=== PATIENT | male | born 1985 | race Caucasian/White ===

== ENCOUNTER 2016-07-18 20:31 | Emergency (ER) | payer SELFPAY | END 2016-07-18 20:35 | disposition left against medical advice (07) | LOC: ER 20:31 | DX: Z53.21 Procedure and treatment not carried out due to patient leaving prior to being seen by health care provider (principal) ==

== ENCOUNTER 2017-06-07 13:39 | Emergency (ER) | payer SELFPAY ==
--- NOTE | 2017-06-07 13:56 | ER Document Report ---
ED Medical Screen (RME) - General Chief Complaint: Testicular Pain Stated Complaint: PELVIC PAIN Time Seen by Provider: 06/07/17 13:55 Notes: pt was having bm and developed severe pelvic/ right teste and rectal pain. the pain continues TRAVEL OUTSIDE OF THE [place] IN LAST 30 DAYS: No - Related Data Allergies/Adverse Reactions: No Known Allergies Allergy (Verified 12/11/13 13:31) Past Medical History - Social History Chew tobacco use (# tins/day): No Frequency of alcohol use: None Neurological Medical History: Reports: Hx Seizures Renal/ Medical History: Denies: Hx Peritoneal Dialysis Traumatic Medical History: Reports: Hx Fractures - right ankle - Immunizations Hx Diphtheria, Pertussis, Tetanus Vaccination: Yes Physical Exam - Vital signs Vitals: Temp Pulse Resp BP Pulse Ox 98.2 F 52 L 16 120/68 99 06/07/17 13:46 06/07/17 13:46 06/07/17 13:46 06/07/17 13:46 06/07/17 13:46 Course - Vital Signs Vital signs: Temp Pulse Resp BP Pulse Ox 98.2 F 52 L 16 120/68 99 06/07/17 13:46 06/07/17 13:46 06/07/17 13:46 06/07/17 13:46 06/07/17 13:46
[2017-06-07 14:21] LABS: APPEARANCE,URINE CLEAR; BILIRUBIN,URINE NEGATIVE (NEGATIVE); COLOR,URINE YELLOW; GLUCOSE, URINE NEGATIVE (NEGATIVE); KETONES,URINE NEGATIVE (NEGATIVE); LEUKOCYTE ESTERASE,URINE NEGATIVE (NEGATIVE); NITRITE,URINE NEGATIVE (NEGATIVE); PROTEIN,URINE NEGATIVE (NEGATIVE); URINE SPECIFIC GRAVITY 1.018; UROBILINOGEN,URINE NEGATIVE mg/dL (<2.0)
[2017-06-07] MEDS ORDERED: KETOROLAC TROMETHAMINE INJ/PF 30 MG/1 ML SDV IV ONE (14:59)
[2017-06-07] MEDS ORDERED: ONDANSETRON HCL INJ/PF 4 MG/2 ML SDV IV ONE (14:59)
--- NOTE | 2017-06-07 15:00 | ER Document Report ---
HPI - HPI Patient complains to provider of: Testicular pain Onset: Just prior to arrival Onset/Duration: Sudden Quality of pain: Sharp Pain Level: 4 Context: Patient states that he was attempting to have a bowel movement and had a sudden onset of right testicular pain that radiated into right side of abdomen. Patient states that he had nausea and felt faint. Patient denies any fever. Patient denies any urinary symptoms. Associated Symptoms: Other - Right testicular pain, right side abdomen pain. denies: Fever Exacerbated by: Denies Relieved by: Denies Similar symptoms previously: No Recently seen / treated by doctor: No - ROS ROS below otherwise negative: Yes Systems Reviewed and Negative: Yes All other systems reviewed and negative - CONSTITUTIONAL Constitutional: DENIES: Fever, Chills - NEURO Neurology: DENIES: Weakness - GASTROINTESTINAL Gastrointestinal: REPORTS: Abdominal Pain, Nausea. DENIES: Patient vomiting - URINARY Notes: Right testicular pain - MUSCULOSKELETAL Musculoskeletal: DENIES: Back Pain - DERM Skin Color: Normal Skin Problems: None Past Medical History - General Information source: Patient - Social History Smoking Status: Never Smoker Chew tobacco use (# tins/day): No Frequency of alcohol use: None Drug Abuse: None Occupation: [employer] Lives with: Family Family History: Reviewed & Not Pertinent Patient has suicidal ideation: No Patient has homicidal ideation: No Neurological Medical History: Reports: Hx Seizures Renal/ Medical History: Reports: Hx Kidney Stones. Denies: Hx Peritoneal Dialysis Traumatic Medical History: Reports: Hx Fractures - right ankle Surgical Hx: Negative - Immunizations Hx Diphtheria, Pertussis, Tetanus Vaccination: Yes Vertical Provider Document - CONSTITUTIONAL Agree With Documented VS: Yes Exam Limitations: No Limitations General Appearance: WD/WN, No Apparent Distress - INFECTION CONTROL TRAVEL OUTSIDE OF THE [place] IN LAST 30 DAYS: No - HEENT HEENT: Atraumatic, Normocephalic - NECK Neck: Normal Inspection - RESPIRATORY Respiratory: Breath Sounds Normal, No Respiratory Distress O2 Sat by Pulse Oximetry: 99 - CARDIOVASCULAR Cardiovascular: Regular Rate, Regular Rhythm, No Murmur - GI/ABDOMEN Gastrointestinal: Abdomen Soft, Abdomen Tender - Right-sided abdomen, right lower quadrant, right inguinal area, No Organomegaly, Normal Bowel Sounds - REPRODUCTIVE Male Genitalia: Abnormal Inspection Notes: Patient with right testicular tenderness and right inguinal tenderness, decreased cremasteric reflex bilaterally, no drainage or discharge from the penis. - BACK Back: CVA Tenderness-Right - MUSCULOSKELETAL/EXTREMETIES Musculoskeletal/Extremeties: TIFFANIE [place] - NEURO Level of Consciousness: Awake, Alert, Appropriate Motor/Sensory: No Motor Deficit - DERM Integumentary: Warm, Dry, No Rash Course - Re-evaluation Re-evalutation: 06/07/17 17:54 Patient's abdomen soft, no guarding. Patient with mild tenderness to right side of abdomen. Discussed results of ultrasound as well as CT scan with patient. Patient advised of intrarenal stone. Patient encouraged to follow-up with urologist for further evaluation of renal stone as well as hematuria. No concern for pyelonephritis or appendicitis at this time. Patient nontoxic in appearance. Discussed worsening signs or symptoms that patient should return immediately for. Patient verbalized understanding and agrees with plan of care. - Vital Signs Vital signs: Temp Pulse Resp BP Pulse Ox 98.2 F 52 L 16 120/68 99 06/07/17 13:46 06/07/17 13:46 06/07/17 13:46 06/07/17 13:46 06/07/17 13:46 - Laboratory Result Diagrams: 06/07/17 16:10 06/07/17 16:10 Laboratory results interpreted by me: 06/07/17 14:02 Urine Blood LARGE H 06/07/17 17:53 Labs- Entire Visit 06/07/17 06/07/17 06/07/17 14:02 16:10 16:10 WBC 9.2 RBC 5.07 Hgb 15.2 Hct 44.6 MCV 88 MCH 29.9 MCHC 34.0 RDW 13.5 Plt Count 255 Seg Neutrophils % 68.8 Lymphocytes % 20.4 Monocytes % 6.0 Eosinophils % 4.0 Basophils % 0.8 Absolute Neutrophils 6.4 Absolute Lymphocytes 1.9 Absolute Monocytes 0.6 Absolute Eosinophils 0.4 Absolute Basophils 0.1 Sodium 142.2 Potassium 4.8 Chloride 105 Carbon Dioxide 29 Anion Gap 8 BUN 16 Creatinine 0.90 Est GFR ( Amer) > 60 Est GFR (Non-Af Amer) > 60 Glucose 92 Calcium 9.6 Total Bilirubin 0.6 Direct Bilirubin 0.5 H Neonat Total Bilirubin Not Reportable Neonat Direct Bilirubin Not Reportable Neonat Indirect Bili Not Reportable AST 45 ALT 47 Alkaline Phosphatase 59 Total Protein 7.5 Albumin 4.5 Urine Color YELLOW Urine Appearance CLEAR Urine pH 5.0 Ur Specific Leblanc 1.018 Urine Protein NEGATIVE Urine Glucose (UA) NEGATIVE Urine Ketones NEGATIVE Urine Blood LARGE H Urine Nitrite NEGATIVE Urine Bilirubin NEGATIVE Urine Urobilinogen NEGATIVE Ur Leukocyte Esterase NEGATIVE Urine WBC (Auto) 1 Urine RBC (Auto) 11 Squamous Epi Cells Auto <1 Urine Mucus (Auto) OCC Urine Ascorbic Acid NEGATIVE - Diagnostic Test Radiology reviewed: Reports reviewed Discharge - Discharge Clinical Impression: Scrotal pain, Renal stone Abdominal pain Qualifiers: Abdominal location: unspecified location Qualified Code(s): R10.9 - Unspecified abdominal pain Hematuria Qualifiers: Hematuria type: unspecified type Qualified Code(s): R31.9 - Hematuria, unspecified Condition: Stable Disposition: HOME, SELF-CARE Instructions: Abdominal Pain ([facility]), Hematuria ([facility]) Additional Instructions: Return immediately for any new or worsening symptoms Followup with your primary care provider, call tomorrow to make a followup appointment Follow up with a urologist for further evaluation of renal stones as well as blood in your urine Prescriptions: Oxycodone HCl/Acetaminophen [Percocet 5-325 mg Tablet] 1 tab PO ASDIR PRN #10 tablet PRN Reason: Forms: Return to Work Referrals: [facility] [Provider Group] - Follow up as needed [facility] [Provider Group] - Follow up as needed [facility] [Provider Group] - Follow up as needed
[2017-06-07 16:25] LABS: ABSOLUTE BASOPHILS # (AUTO) 0.1 10^3/uL (0.0-0.2); ABSOLUTE EOSINOPHILS # (AUTO) 0.4 10^3/uL (0.0-0.6); ABSOLUTE LYMPHOCYTES (AUTO) 1.9 10^3/uL (0.5-4.7); ABSOLUTE MONOCYTES (AUTO) 0.6 10^3/uL (0.1-1.4); ABSOLUTE NEUT (AUTO) 6.4 10^3/uL (1.7-8.2); BASOPHILS % (AUTO) 0.8 % (0-2); HEMATOCRIT 44.6 % (37.9-51.0); HEMOGLOBIN 15.2 g/dL (13.5-17.0); LYMPHOCYTES % (AUTO) 20.4 % (13-45); MEAN CORPUSCULAR HEMOGLOBIN 29.9 pg (27.0-33.4); MEAN CORPUSCULAR VOLUME 88 fl (80-97); PLATELET COUNT 255 10^3/uL (150-450); RED BLOOD COUNT 5.07 10^6/uL (4.35-5.55); RED CELL DISTRIBUTION WIDTH 13.5 % (11.5-14.0); SEGMENTED NEUTROPHILS % (AUTO) 68.8 % (42-78); TOTAL CELLS COUNTED % (AUTO) 100 %; WHITE BLOOD COUNT 9.2 10^3/uL (4.0-10.5)
[2017-06-07 16:43] LABS: ALANINE AMINOTRANSFERASE 47 U/L (21-72); ALBUMIN 4.5 g/dL (3.5-5.0); ALKALINE PHOSPHATASE 59 U/L (38-126); ANION GAP 8 (5-19); ASPARTATE AMINO TRANSFERASE 45 U/L (17-59); BILIRUBIN,DIRECT 0.5 mg/dL (0.0-0.4); BILIRUBIN,TOTAL 0.6 mg/dL (0.2-1.3); BLOOD UREA NITROGEN 16 mg/dL (7-20); CALCIUM 9.6 mg/dL (8.4-10.2); CARBON DIOXIDE 29 mmol/L (22-30); CHLORIDE 105 mmol/L (98-107); GLUCOSE 92 mg/dL (75-110); POTASSIUM 4.8 mmol/L (3.6-5.0); SODIUM 142.2 mmol/L (137-145); TOTAL PROTEIN 7.5 g/dL (6.3-8.2)
--- NOTE | 2017-06-07 17:17 | RADIOLOGY REPORT (SQ) ---
EXAM DESCRIPTION: U/S SCROTUM W/DOPPLER COMPLETED DATE/TIME: 06/07/2017 4:59 pm REASON FOR STUDY: testicular pain COMPARISON: None. TECHNIQUE: Static and realtime vieyra scale imaging of the scrotum and testes. Selected color Doppler and spectral images recorded to document blood flow. LIMITATIONS: None. FINDINGS: RIGHT: TESTICLE: Normal size. Normal echotexture. Normal blood flow. No mass. EPIDIDYMIS: Normal. HYDROCELE OR VARICOCELE: No. HERNIA OR EXTRA-TESTICULAR MASS: No. OTHER: No other significant finding. LEFT: TESTICLE: Normal size. Normal echotexture. Normal blood flow. No mass. EPIDIDYMIS: Normal. HYDROCELE OR VARICOCELE: No. HERNIA OR EXTRA-TESTICULAR MASS: No. OTHER: No other significant finding. IMPRESSION: NORMAL SCROTAL ULTRASOUND. NO EVIDENCE OF TESTICULAR MASS OR TORSION. TECHNICAL DOCUMENTATION: JOB ID: [id number] [employer]- All Rights Reserved Reading location - IP/workstation name: [email or web address]
--- NOTE | 2017-06-07 17:48 | RADIOLOGY REPORT (SQ) ---
EXAM DESCRIPTION: CT ABD/PELVIS WITH IV ONLY COMPLETED DATE/TIME: 06/07/2017 5:30 pm REASON FOR STUDY: RLQ pain COMPARISON: None. TECHNIQUE: CT scan of the abdomen and pelvis performed using helical scanning technique with dynamic intravenous contrast injection. No oral contrast. Images reviewed with lung, soft tissue, and bone windows. Reconstructed coronal and sagittal MPR images reviewed. Delayed images for evaluation of the urinary system also acquired. All images stored on PACS. All CT scanners at this facility use dose modulation, iterative reconstruction, and/or weight based d osing when appropriate to reduce radiation dose to as low as reasonably achievable (ALARA). [facility]: Dose Right [facility]: CareDose [facility]: Dose Right [facility]: Teradose 4D [facility]: [employer] CONTRAST TYPE AND DOSE: contrast/concentration: Isovue 370.00 mg/ml; Total Contrast Delivered: 100.0 ml; Total Saline Delivered: 35.0 ml RENAL FUNCTION: None required. The patient is less than 50 years old. RADIATION DOSE: CT Rad equipment meets quality standard of care and radiation dose reduction techniq ues were employed. CTDIvol: 20.1 - 20.7 mGy. DLP: 2348 mGy-cm.. LIMITATIONS: None. FINDINGS: LOWER CHEST: No significant findings. No nodules or infiltrates. LIVER: Normal size. No masses. No dilated ducts. SPLEEN: Normal size. No focal lesions. PANCREAS: No masses. No significant calcifications. No adjacent inflammation or peripancreatic fluid collections. Pancreatic duct not dilated. GALLBLADDER: No identified stones by CT criteria. No inflammatory changes to suggest cholecystitis. ADRENAL GLANDS: No significant masses or asymmetry. RIGHT KIDNEY AND URETER: No solid masses. There is a 3 mm lower calyceal calculus on the right. N o hydronephrosis or hydroureter. LEFT KIDNEY AND URETER: No solid masses. No significant calcifications. No hydronephrosis or hydr oureter. AORTA AND VESSELS: No aneurysm. No dissection. Renal arteries, SMA, celiac without stenosis. RETROPERITONEUM: No retroperitoneal adenopathy, hemorrhage or masses. BOWEL AND PERITONEAL CAVITY: No masses or inflammatory changes. No free fluid or peritoneal masses. APPENDIX: Normal. PELVIS: No mass. No free fluid. Normal bladder. ABDOMINAL WALL: No masses. No hernias. BONES: No significant or acute findings. OTHER: No other significant finding. IMPRESSION: The study is normal except for the presence of a 3 mm lower calyceal calculus in the rig ht kidney. TECHNICAL DOCUMENTATION: JOB ID: [id number] Quality ID # [id number]: Final reports with documentation of one or more dose reduction techniques (e.g., Au tomated exposure control, adjustment of the mA and/or kV according to patient size, use of iterative reconstruction technique) 2010 [employer]- All Rights Reserved Reading location - IP/workstation name: [email or web address]
[2017-06-07 18:19] VITALS: BP 104/60
== END 2017-06-07 18:21 | disposition home or self-care (01) ==
LOC: ER 13:39
DX: N50.82 Scrotal pain (principal); N20.0 Calculus of kidney; N50.811 Right testicular pain; R31.9 Hematuria, unspecified; R10.9 Unspecified abdominal pain; R11.0 Nausea; Z87.442 Personal history of urinary calculi
CPT/HCPCS: 99284; 96374; 96375; 36415; 87086; 85025; 80053; 81001; 76870; 93976; 74177; J1885; J2405

== ENCOUNTER 2017-12-29 08:21 | Emergency (ER) | payer SELFPAY ==
--- NOTE | 2017-12-29 09:56 | ER Document Report ---
ED General - General Chief Complaint: Leg Swelling Stated Complaint: LEG SWELLING/PAIN Time Seen by Provider: 12/29/17 09:16 TRAVEL OUTSIDE OF THE [place] IN LAST 30 DAYS: No - HPI Notes: Patient is a 32-year-old male that presents to the emergency department for chief complaint of right leg swelling and pain. Patient states he has had cramping pain in the back of his right leg for the last week. Today he woke up and noticed it was significantly more swollen than the left. He also states he has a substernal chest pain that started this morning. The pain is intermittent and lasts for a few minutes at a time. There is no relieving factors. He states that it does occur while at rest or when he is up moving around. He describes it as a sharp and achy pain. He states that it is worse when he takes a deep breath in. He recently evacuated from the [place] to [facility] which was about a 6-hour car ride both ways. He denies any history of cancer, personal or family history of DVT, and recent surgeries. Currently he is not having any chest pain. Past Medical History: Negative Past Surgical History: Negative Social History: Occasional alcohol. denies drugs and tobacco. Family History: Reviewed and noncontributory for presenting illness Allergies: Reviewed, see documented allergy list. REVIEW OF SYSTEMS: CONSTITUTIONAL : No fever No chills No diaphoresis No recent illness EENT: No vision changes No congestion No sore throat CARDIOVASCULAR: chest pain No palpitations RESPIRATORY: No shortness of breath No cough No difficulty breathing GASTROINTESTINAL: No abdominal pain No nausea No vomiting No diarrhea GENITOURINARY: No dysuria No hematuria No difficulty urinating MUSCULOSKELETAL: No back pain Right leg pain and swelling No arm pain SKIN: No rashes No lesions LYMPHATIC: No swollen, enlarged glands. NEUROLOGICAL: No lightheadedness No headache No weakness No paresthesias PSYCHIATRIC: No anxiety No depression PHYSICAL EXAMINATION: Vital signs reviewed, nursing noted reviewed. GENERAL: Well-appearing, well-nourished and in no acute distress. HEAD: Atraumatic, normocephalic. EYES: Eyes appear normal, extraocular movements intact, sclera anicteric, conjunctiva are normal. ENT: nares patent, oropharynx clear without exudates. Moist mucous membranes. NECK: Normal range of motion, supple without lymphadenopathy LUNGS: Breath sounds clear to auscultation bilaterally and equal. No wheezes rales or rhonchi. HEART: Regular rate and rhythm without murmurs ABDOMEN: Soft, nontender, normoactive bowel sounds. No rebound, guarding, or rigidity. No masses appreciated. EXTREMITIES:good range of motion, +2 pitting edema right lower extremity with engorgement of superficial veins, right calf tenderness to palpation. Compartments soft. Normal left leg exam. +2/4 DP pulse bilaterally NEUROLOGICAL: No focal neurological deficits. Moves all extremities spontaneously Motor and sensory grossly intact on exam. PSYCH: Normal mood, normal affect. SKIN: Warm, Dry, normal turgor, no rashes or lesions noted on exposed skin - Related Data Allergies/Adverse Reactions: No Known Allergies Allergy (Verified 12/29/17 08:31) Past Medical History - Social History Smoking Status: Never Smoker Family History: Reviewed & Not Pertinent Neurological Medical History: Reports: Hx Seizures Renal/ Medical History: Reports: Hx Kidney Stones. Denies: Hx Peritoneal Dialysis Traumatic Medical History: Reports: Hx Fractures - right ankle - Immunizations Hx Diphtheria, Pertussis, Tetanus Vaccination: Yes Review of Systems - Review of Systems Notes: Dictated Physical Exam - Vital signs Vitals: Temp Pulse Resp BP Pulse Ox 97.6 F 40 L 14 111/70 99 12/29/17 08:36 12/29/17 08:36 12/29/17 08:36 12/29/17 08:36 12/29/17 08:36 - Notes Notes: Dictated Course - Re-evaluation Re-evalutation: 12/29/17 09:56 Vitals reviewed. Patient afebrile nontoxic. 12/29/17 11:10 Laboratory 12/29/17 12/29/17 12/29/17 09:55 09:55 09:55 WBC 7.7 RBC 4.64 Hgb 14.2 Hct 41.4 MCV 89 MCH 30.6 MCHC 34.3 RDW 13.2 Plt Count 210 Seg Neutrophils % 60.1 Lymphocytes % 25.5 Monocytes % 8.2 Eosinophils % 5.7 Basophils % 0.5 Absolute Neutrophils 4.6 Absolute Lymphocytes 2.0 Absolute Monocytes 0.6 Absolute Eosinophils 0.4 Absolute Basophils 0.0 D-Dimer < 0.27 Sodium 141.3 Potassium 4.2 Chloride 107 Carbon Dioxide 30 Anion Gap 4 L BUN 10 Creatinine 0.86 Est GFR ( Amer) > 60 Est GFR (Non-Af Amer) > 60 Glucose 88 Calcium 8.9 Chest/Abdomen CTA 12/29/17 09:39 IMPRESSION: 1. NORMAL CTA OF THE CHEST. NO PULMONARY EMBOLI. 2. A FEW TINY PUNCTATE NONOBSTRUCTING CALCULI IN THE LEFT KIDNEY. 12/29/17 11:11 Patient reevaluated. He is bradycardic but asymptomatic. There is no heart block. Blood pressure has been stable. He has no lower extremity DVT on ultrasound. CT scan of the chest shows no pulmonary embolism. Lab work is unremarkable. Patient will be referred to family medicine for follow-up of his peripheral edema and bradycardia. He was advised to return to the emergency room for new or worsening symptoms. Patient stable and in agreement with the plan. - Vital Signs Vital signs: Temp Pulse Resp BP Pulse Ox 97.6 F 40 L 14 111/70 99 12/29/17 08:36 12/29/17 08:36 12/29/17 08:36 12/29/17 08:36 12/29/17 08:36 - Laboratory Result Diagrams: 12/29/17 09:55 12/29/17 09:55 Laboratory results interpreted by me: 12/29/17 09:55 Anion Gap 4 L - EKG Interpretation by Me Additional EKG results interpreted by me: 12/29/17 10:08 0951: Sinus bradycardia, rate 37, no ectopy, normal axis, no ST elevation or heart block Discharge - Discharge Clinical Impression: Leg edema, right, Bradycardia Condition: Stable Disposition: HOME, SELF-CARE Instructions: Edema, Peripheral ([facility]), Family Physicians / Practices Additional Instructions: Please return to the emergency department if you have any worsening, or concern of your symptoms. Please return to the emergency department if you develop chest pain, difficulty breathing, severe abdominal pain, or ongoing vomiting. Please follow-up with your primary care physician in 2-3 days and any other recommended physicians. If prescribed, take all medications as directed. If you have any questions or concerns do not hesitate to return the emergency department for evaluation. []
[2017-12-29 10:13] LABS: ABSOLUTE EOSINOPHILS # (AUTO) 0.4 10^3/uL (0.0-0.6); ABSOLUTE MONOCYTES (AUTO) 0.6 10^3/uL (0.1-1.4); ABSOLUTE NEUT (AUTO) 4.6 10^3/uL (1.7-8.2); BASOPHILS % (AUTO) 0.5 % (0-2); EOSINOPHILS % (AUTO) 5.7 % (0-6); HEMATOCRIT 41.4 % (37.9-51.0); HEMOGLOBIN 14.2 g/dL (13.5-17.0); LYMPHOCYTES % (AUTO) 25.5 % (13-45); MEAN CORPUSCULAR HEMOGLOBIN 30.6 pg (27.0-33.4); MEAN CORPUSCULAR HGB CONC 34.3 g/dL (32.0-36.0); MEAN CORPUSCULAR VOLUME 89 fl (80-97); MONOCYTES % (AUTO) 8.2 % (3-13); PLATELET COUNT 210 10^3/uL (150-450); RED BLOOD COUNT 4.64 10^6/uL (4.35-5.55); RED CELL DISTRIBUTION WIDTH 13.2 % (11.5-14.0); SEGMENTED NEUTROPHILS % (AUTO) 60.1 % (42-78); TOTAL CELLS COUNTED % (AUTO) 100 %; WHITE BLOOD COUNT 7.7 10^3/uL (4.0-10.5)
[2017-12-29 10:37] LABS: BLOOD UREA NITROGEN 10 mg/dL (7-20); CALCIUM 8.9 mg/dL (8.4-10.2); CARBON DIOXIDE 30 mmol/L (22-30); CHLORIDE 107 mmol/L (98-107); GLUCOSE 88 mg/dL (75-110); POTASSIUM 4.2 mmol/L (3.6-5.0); SODIUM 141.3 mmol/L (137-145)
--- NOTE | 2017-12-29 10:44 | RADIOLOGY REPORT (SQ) ---
EXAM DESCRIPTION: CTA CHEST COMPLETED DATE/TIME: 12/29/2017 10:31 am REASON FOR STUDY: chest pain COMPARISON: None. TECHNIQUE: CT scan of the chest performed using helical scanning technique with dynamic intravenous contrast injection. Images reviewed with lung, soft tissue and bone windows. Reconstructed coronal and sagittal MPR images reviewed. Additional 3 dimensional post-processing performed to develop Maximal Intensity Projection images (N[place] P). All images stored on PACS. All CT scanners at this facility use dose modulation, iterative reconstruction, and/or weight based d osing when appropriate to reduce radiation dose to as low as reasonably achievable (ALARA). [facility]: Dose Right [facility]: CareDose [facility]: Dose Right [facility]: Teradose 4D [facility]: [employer] CONTRAST TYPE AND DOSE: contrast/concentration: Isovue 350.00 mg/ml; Total Contrast Delivered: 84.0 ml; Total Saline Delivered: 90.0 ml Contrast bolus optimized for the pulmonary arteries. Not diagnostic for the aorta. RENAL FUNCTION: None required. The patient is less than 50 years old. RADIATION DOSE: CT Rad equipment meets quality standard of care and radiation dose reduction techniq ues were employed. CTDIvol: 19.8 - 32.0 mGy. DLP: 1224 mGy-cm. . LIMITATIONS: None. FINDINGS: LUNGS AND PLEURA: No masses, infiltrates, or pneumothorax. No pleural effusions or pleura l calcifications. AORTA AND GREAT VESSELS: No aneurysm. Contrast bolus not optimized for the aorta. HEART: No pericardial effusion. No significant coronary artery calcifications. PULMONARY ARTERIES: No emboli visualized in the main pulmonary arteries or the segmental branches. HILAR AND MEDIASTINAL STRUCTURES: No identified masses or abnormal nodes. HARDWARE: None in the chest. UPPER ABDOMEN: A few tiny punctate calculi in the left kidney. Limited exam. THYROID AND OTHER SOFT TISSUES: No masses. No adenopathy. BONES: No acute or significant finding. 3D MIPS: Confirm above findings. OTHER: No other significant finding. IMPRESSION: 1. NORMAL CTA OF THE CHEST. NO PULMONARY EMBOLI. 2. A FEW TINY PUNCTATE NONOBSTRUCTING CALCULI IN THE LEFT KIDNEY. COMMENT: Quality ID # 436: Final reports with documentation of one or more dose reduction techniques (e.g., Automated exposure control, adjustment of the mA and/or kV according to patient size, use of iterative reconstruction technique) TECHNICAL DOCUMENTATION: JOB ID: [id number] [employer]- All Rights Reserved Reading location - IP/workstation name: [email or web address]
[2017-12-29 10:52] LABS: ANION GAP 4 (5-19)
[2017-12-29 12:00] VITALS: BP 114/79
--- NOTE | 2017-12-29 12:29 | XCELERA REPORT ---
[address] [place] [facility] [address] Lower Extremity Venous Evaluation Procedure: A unilateral duplex scan of the right lower extremity veins was performed. The evaluation included responses to compression and other maneuvers. The contralateral femoral vein was also evaluated.Reason Right Sided Venous Evaluation Normal vessel filling wall to wall, compression and augmentation as well as Colour flow down to the infrageniculate veins. Interpretation Summary There is no evidence of deep vein thrombosis in the right lower extremity. Name: PILY VALLADARES Age: 32 yrs Gender: Male : 1985 Patient Status: Emergency Patient Location: ER Study Date: 12/29/2017 10:48 AM For Study: pain right leg Ordering Physician: OCTAVIO PATTERSON Performed By: Dhaval Corrigan : OCTAVIO PATTERSON > Jeff Lind
--- NOTE | 2017-12-29 21:05 | EKG REPORT ---
SEVERITY:- OTHERWISE NORMAL ECG - SINUS BRADYCARDIA : Confirmed by: Belkys Richards MD 29-Dec-2017 21:04:29
== END 2017-12-29 12:15 | disposition home or self-care (01) ==
LOC: ER 08:21
DX: R00.1 Bradycardia, unspecified (principal); R60.9 Edema, unspecified; M79.604 Pain in right leg; Z87.442 Personal history of urinary calculi
CPT/HCPCS: 36415; 71275; 80048; 85025; 85379; 93005; 93010; 93971; 99284

== ENCOUNTER 2019-08-20 21:28 | Emergency (ER) | payer SELFPAY ==
[2019-08-20] MEDS ORDERED: ASPIRIN 81 MG TABLET, CHEWABLE PO ONE (21:45)
--- NOTE | 2019-08-20 21:48 | ER Document Report ---
ED Medical Screen (RME) - General Chief Complaint: Arm Pain Stated Complaint: PAIN LEFT ARM Time Seen by Provider: 08/20/19 21:38 Mode of Arrival: Ambulatory Information source: Patient Notes: 34-year-old male presented to ED for complaint of left arm pain for the last 2 hours. He states it goes across the left shoulder down the left arm. He states he has not had any injuries he has not lifted anything he has no cardiac history. He states he has had no shortness of breath he just is pain going from across her shoulder down to his left fingers. Patient is alert oriented respirations regular and unlabored speaking in full sentences. He does not have any tenderness to the chest. I have greeted and performed a rapid initial assessment of this patient. A comprehensive ED assessment and evaluation of the patient, analysis of test results and completion of medical decision making process will be conducted by an additional ED providers. He has TRAVEL OUTSIDE OF THE [place] IN LAST 30 DAYS: No - Related Data Allergies/Adverse Reactions: No Known Allergies Allergy (Verified 12/29/17 08:31) Past Medical History Neurological Medical History: Reports: Hx Seizures Renal/ Medical History: Reports: Hx Kidney Stones. Denies: Hx Peritoneal Dial ysis Traumatic Medical History: Reports: Hx Fractures - right ankle - Immunizations Hx Diphtheria, Pertussis, Tetanus Vaccination: Yes
[2019-08-20 22:18] LABS: ABSOLUTE EOSINOPHILS # (AUTO) 0.2 10^3/uL (0.0-0.6); ABSOLUTE LYMPHOCYTES (AUTO) 2.2 10^3/uL (0.5-4.7); ABSOLUTE MONOCYTES (AUTO) 0.6 10^3/uL (0.1-1.4); ABSOLUTE NEUT (AUTO) 6.9 10^3/uL (1.7-8.2); BASOPHILS % (AUTO) 0.3 % (0-2); EOSINOPHILS % (AUTO) 2.3 % (0-6); HEMATOCRIT 45.6 % (37.9-51.0); HEMOGLOBIN 15.6 g/dL (13.5-17.0); LYMPHOCYTES % (AUTO) 22.1 % (13-45); MEAN CORPUSCULAR HEMOGLOBIN 30.9 pg (27.0-33.4); MEAN CORPUSCULAR HGB CONC 34.3 g/dL (32.0-36.0); MEAN CORPUSCULAR VOLUME 90 fl (80-97); MONOCYTES % (AUTO) 6.1 % (3-13); PLATELET COUNT 233 10^3/uL (150-450); RED BLOOD COUNT 5.07 10^6/uL (4.35-5.55); RED CELL DISTRIBUTION WIDTH 12.7 % (11.5-14.0); SEGMENTED NEUTROPHILS % (AUTO) 69.2 % (42-78); TOTAL CELLS COUNTED % (AUTO) 100 %
[2019-08-20 22:33] LABS: ALBUMIN 4.6 g/dL (3.5-5.0); ALKALINE PHOSPHATASE 66 U/L (38-126); ANION GAP 7 (5-19); ASPARTATE AMINO TRANSFERASE 37 U/L (17-59); BILIRUBIN,TOTAL 0.6 mg/dL (0.2-1.3); BLOOD UREA NITROGEN 15 mg/dL (7-20); CALCIUM 9.8 mg/dL (8.4-10.2); CARBON DIOXIDE 28 mmol/L (22-30); CHLORIDE 102 mmol/L (98-107); GLUCOSE 96 mg/dL (75-110); POTASSIUM 4.8 mmol/L (3.6-5.0); TOTAL PROTEIN 7.5 g/dL (6.3-8.2)
--- NOTE | 2019-08-20 22:42 | RADIOLOGY REPORT (SQ) ---
EXAM DESCRIPTION: PA and lateral x-rays of the chest CLINICAL HISTORY: 34 years Male, Left shoulder down the left arm pain no injury COMPARISON: None. FINDINGS: Lungs: Lungs are clear. No pneumonia or edema. No pneumothorax or pleural effusion. Mediastinum: Cardiac and mediastinal silhouette are normal. Bones: Osseous structures are normal. IMPRESSION: Unremarkable radiographs of the chest
--- NOTE | 2019-08-20 22:43 | RADIOLOGY REPORT (SQ) ---
EXAM DESCRIPTION: XR SHOULDER 2 OR MORE VIEWS COMPLETED DATE/TME: 08/20/2019 21:48 CLINICAL HISTORY: 34 years, Male, pain left shoulder to hand COMPARISON: None. NUMBER OF VIEWS: 3 TECHNIQUE: Frontal and transscapular Y projections were acquired LIMITATIONS: None. FINDINGS: Visualized osseous structures are normal in appearance. Joint spaces are well-maintained. No acute fracture or dislocation is evident. IMPRESSION: No acute osseous anomaly. copyright 2010 [employer]- All Rights Reserved
[2019-08-20] MEDS ORDERED: KETOROLAC TROMETHAMINE INJ/PF 30 MG/1 ML SDV IV ONE (23:24)
--- NOTE | 2019-08-20 23:25 | ER Document Report ---
ED General - General Chief Complaint: Arm Pain Stated Complaint: PAIN LEFT ARM Time Seen by Provider: 08/20/19 21:38 Mode of Arrival: Ambulatory Notes: Patient is a 34-year-old male who comes emergency department with chief complaint of left arm pain that has become noticeable for the past 2 hours although he states he did feel earlier when he was at work. He also is a sunburn on the left arm. He states that when he first started noticing the pain this evening he also looked at his arm and felt like it might be swollen, he states he was concerned it might have a blood clot. He states he also has some pain up in the front of his chest, he states that he can find a specific area that if he presses on it hurts, it also hurts when he attempts to raise his left arm over his head. He states occasionally he will feel the pain shoot down his arm into his fingers. He denies numbness, shortness of breath, nausea, vomiting, dizziness, impact injury. He denies smoking, recreational drugs, reports limited alcohol. He takes no daily medications. He denies any recent travel or surgery. He does not know his family history because he is adopted. TRAVEL OUTSIDE OF THE [place] IN LAST 30 DAYS: No - Related Data Allergies/Adverse Reactions: No Known Allergies Allergy (Verified 12/29/17 08:31) Past Medical History - General Information source: Patient - Social History Smoking Status: Never Smoker Frequency of alcohol use: None Drug Abuse: None Lives with: Family Family History: Reviewed & Not Pertinent Patient has homicidal ideation: No Neurological Medical History: Reports: Hx Seizures Renal/ Medical History: Reports: Hx Kidney Stones. Denies: Hx Peritoneal Dialysis Traumatic Medical History: Reports: Hx Fractures - right ankle - Immunizations Hx Diphtheria, Pertussis, Tetanus Vaccination: Yes Review of Systems - Review of Systems Constitutional: No symptoms reported EENT: No symptoms reported Cardiovascular: See HPI Respiratory: No symptoms reported Gastrointestinal: No symptoms reported Genitourinary: No symptoms reported Male Genitourinary: No symptoms reported Musculoskeletal: See HPI Skin: No symptoms reported Hematologic/Lymphatic: No symptoms reported Neurological/Psychological: No symptoms reported Physical Exam - Vital signs Vitals: Temp 98 F 08/20/19 21:28 - Notes Notes: GENERAL: Alert, interacts well. No acute distress. HEAD: Normocephalic, atraumatic. EYES: Pupils equal, round, and reactive to light. Extraocular movements intact. ENT: Oral mucosa moist, tongue midline. Oropharynx unremarkable. Airway patent. NECK: Full range of motion. Supple. Trachea midline. No lymphadenopathy. LUNGS: Clear to auscultation bilaterally, no wheezes, rales, or rhonchi. No respiratory distress. Very specific left-sided pectoral muscle tenderness which is very reproducible. This is also worsening with range of motion especially when patient tries to lift his left arm over his head. HEART: Regular rate and rhythm. No murmur ABDOMEN: Soft, non-tender. Non-distended. Bowel sounds present in all 4 quadrants. GENITOURINARY: Deferred EXTREMITIES: Moves all 4 extremities spontaneously. No edema, normal radial and dorsalis pedis pulses bilaterally. No cyanosis. BACK: no cervical, thoracic, lumbar midline tenderness. No saddle anesthesia, normal distal neurovascular exam. Moves all extremities in full range of motion. NEUROLOGICAL: Alert and oriented x3. Normal speech. Cranial nerves II through XII grossly intact. Strength 5/5 in all extremities. PSYCH: Normal affect, normal mood. SKIN: Warm, dry, normal turgor. No rashes or lesions noted. Course - Re-evaluation Re-evalutation: I did read provider documentation in triage, this does state that patient has no chest wall pain, however patient very specifically has pain in the left pectoral muscle which is reproducible, specific, palpable, and patient shows this to me. In addition patient has very reproducible pain with range of motion specifically with lifting his left arm over his shoulder. He has no noted swelling to the left upper extremity, no risk factors for DVT reported, he is PERC negative. Patient with no cardiac risk factors reported either. EKG nonischemic, chest x- ray and shoulder x-ray unremarkable, CBC, chemistry, troponin not elevated. Because patient has very specifically musculoskeletal symptoms on exam I have very low suspicion of ACS in addition to this. Patient is asking to be discharged, he was given Toradol. However patient is still wondering about the potential of a clot in the left arm. We discussed that this is low suspicion but patient was provided with a prescription that if he develops additional swelling he can have the ultrasound performed, however I encouraged him to return the emergency department if this or any other concerning symptoms occur, these were discussed in detail, patient does state understanding and agreement. Stable, asymptomatic at rest, well-appearing at time of discharge. - Vital Signs Vital signs: Temp Pulse Resp BP Pulse Ox 98 F 53 L 17 143/89 H 99 08/20/19 21:28 08/21/19 00:20 08/21/19 00:20 08/21/19 00:20 08/21/19 00:20 - Laboratory Result Diagrams: 08/20/19 22:00 08/20/19 22:00 Laboratory results interpreted by me: 08/20/19 22:00 Sodium 136.7 L Discharge - Discharge Clinical Impression: Chest wall pain, Left arm pain Condition: Stable Disposition: HOME, SELF-CARE Additional Instructions: Your evaluation is most consistent with strain and pain from your pectoral muscle and shoulder on exam. Your work-up at this time does not show any concerning findings. I recommend you rest, for the first 24 hours apply ice, after this apply heat to the areas, take the anti-inflammatory as prescribed. Follow-up with primary care. Return if you worsen including severe swelling or worsening pain of the left arm/shoulder, fever, chest pain, shortness of breath, passing out, or any other concerning or worsening symptoms. Prescriptions: Naproxen 500 mg PO BID PRN #14 tablet PRN Reason: Forms: Follow-Up Outpatient Testing
[2019-08-21 00:25] VITALS: BP 143/89
--- NOTE | 2019-08-21 07:51 | EKG REPORT ---
SEVERITY:- NORMAL ECG - SINUS RHYTHM : Confirmed by: Belkys Richards MD 21-Aug-2019 07:50:30
== END 2019-08-21 00:44 | disposition home or self-care (01) ==
LOC: ER 21:28
DX: R07.89 Other chest pain (principal); M79.602 Pain in left arm; L55.9 Sunburn, unspecified
CPT/HCPCS: 93005; 99284; 96374; 36415; 85025; 80053; 84484; 71046; 73030; 93010; J1885

== ENCOUNTER → 2019-08-22 | Outpatient (CLI) | payer SELFPAY ==
--- NOTE | 2019-08-22 12:19 | RADIOLOGY REPORT (SQ) ---
EXAM DESCRIPTION: VENOUS UNILATERAL UPPER IMAGES COMPLETED DATE/TIME: 08/22/2019 12:01 pm REASON FOR STUDY: LUE SWELLING COMPARISON: None. TECHNIQUE: Dynamic and static vieyra scale and color images acquired of the left arm venous system. Se lected spectral images acquired with additional compression and augmentation maneuvers. The contralat eral subclavian vein and internal jugular vein were also imaged. Images stored on PACS. LIMITATIONS: None. FINDINGS: INTERNAL JUGULAR VEIN: Normal phasicity, compression, augmentation. No visualized echogeni c material on vieyra scale. No defects on color images. Comparison opposite side normal. SUBCLAVIAN VEIN: Normal compression, augmentation. No visualized echogenic material on vieyra scale. No defects on color images. AXILLARY VEIN: Normal compression, augmentation. No visualized echogenic material on vieyra scale. No d efects on color images. BRACHIAL VEIN: Normal compression, augmentation. No visualized echogenic material on vieyra scale. No d efects on color images. BASILIC VEIN: Normal compression, augmentation. No visualized echogenic material on vieyra scale. No de fects on color images. CEPHALIC VEIN: Normal compression, augmentation. No visualized echogenic material on vieyra scale. No d efects on color images. OTHER: No other significant finding. CONTRALATERAL SUBCLAVIAN VEIN AND INTERNAL JUGULAR VEIN: Normal phasicity, compression and augmentation. No visualized echogenic material on vieyra scale. No de fects on color images. IMPRESSION: NO EVIDENCE DVT OR SVT IN THE LEFT ARM. TECHNICAL DOCUMENTATION: JOB ID: [id number] 2010 [employer]- All Rights Reserved Reading location - IP/workstation name: [email or web address]
== END ==
LOC: RAD 09:29
DX: M79.89 Other specified soft tissue disorders (principal)
CPT/HCPCS: 93971